=== PATIENT | female | born 1960 | race Caucasian/White ===

== ENCOUNTER → 2019-05-03 | Outpatient (CLI) | payer MEDICARE, OTHER ==
--- NOTE | 2019-05-03 14:10 | WOMENS IMAGING REPORT ---
EXAM DESCRIPTION: 3D SCREENING MAMMO BILAT COMPLETED DATE/TIME: 05/03/2019 11:01 am REASON FOR STUDY: Z12.31 ENCOUNTER FOR SCREENING MAMMOGRAM FOR MALIGNANT NEOPLASM OF BREAST Z12.31 ENCNTR SCREEN MAMMOGRAM FOR MALIGNANT NEOPLASM OF SUSAN COMPARISON: None. EXAM PARAMETERS: Views: Standard craniocaudal and mediolateral oblique views of each breast recorded using digital acquisition and breast tomosynthesis. Read with the assistance of CAD. .[facility] - [employer] Part Time Version 9.2 LIMITATIONS: None. FINDINGS: No suspicious masses, suspicious calcifications or architectural distortion. No areas of c oncern. IMPRESSION: NEGATIVE MAMMOGRAM. BIRADS 1. BREAST DENSITY: b. There are scattered areas of fibroglandular density. BIRAD: ASSESSMENT: 1 NEGATIVE RECOMMENDATION: ROUTINE SCREENING COMMENT: The patient has been notified of the results by letter per MQSA requirements. Additional no tification policies are in place for contacting patient with suspicious or incomplete findings. Quality ID #[id number]: The [employer] recommends an annual screening mammogram for women aged 40 years or over. This facility utilizes a reminder system to ensure that all patients receive reminder letters, and/or direct phone calls for appointments. This includes reminders for routine scr eening mammograms, diagnostic mammograms, or other Breast Imaging Interventions when appropriate. Th is patient will be placed in the appropriate reminder system. TECHNICAL DOCUMENTATION: FINDING NUMBER: (1) ASSESSMENT: (1) JOB ID: [id number] [employer] All Rights Reserved Reading location - IP/workstation name: [email or web address]
== END ==
LOC: WI 10:33
PROVIDERS: ATTEND Physician Assistant
DX: Z12.31 Encounter for screening mammogram for malignant neoplasm of breast (principal)
CPT/HCPCS: 77063; 77067

== ENCOUNTER → 2020-06-28 | Outpatient (CLI) | payer MEDICARE, OTHER ==
--- NOTE | 2020-06-28 13:36 | WOMENS IMAGING REPORT ---
EXAM DESCRIPTION: 3D SCREENING MAMMO BILAT IMAGES COMPLETED DATE/TIME: 06/28/2020 11:42 am REASON FOR STUDY: ROUTINE SCREENING MAMMOGRAM Z12.31 Z12.31 ENCNTR SCREEN MAMMOGRAM FOR MALIGNANT N EOPLASM OF SUSAN COMPARISON: 2019 EXAM PARAMETERS: Views: Standard craniocaudal and mediolateral oblique views of each breast recorded using digital acquisition and breast tomosynthesis. Read with the assistance of CAD. .[facility] - [employer] Version 9.2 LIMITATIONS: None. FINDINGS: No suspicious masses, suspicious calcifications or architectural distortion. No areas of c oncern. IMPRESSION: NEGATIVE MAMMOGRAM. BIRADS 1. BREAST DENSITY: b. There are scattered areas of fibroglandular density. BIRAD: ASSESSMENT: 1 NEGATIVE RECOMMENDATION: ROUTINE SCREENING COMMENT: The patient has been notified of the results by letter per MQSA requirements. Additional no tification policies are in place for contacting patient with suspicious or incomplete findings. Quality ID #[id number]: The [employer] recommends an annual screening mammogram for women aged 40 years or over. This facility utilizes a reminder system to ensure that all patients receive reminder letters, and/or direct phone calls for appointments. This includes reminders for routine scr eening mammograms, diagnostic mammograms, or other Breast Imaging Interventions when appropriate. Th is patient will be placed in the appropriate reminder system. TECHNICAL DOCUMENTATION: FINDING NUMBER: (1) ASSESSMENT: (1) JOB ID: [id number] 2010 [employer]- All Rights Reserved Reading location - IP/workstation name: [email or web address]
--- OUTSIDE RECORDS SUMMARY | 2020-06-29 15:38 | XMS REPORT ---
:1960 Author [facility] [place] [address] [place] [address] Care Team Providers Name Role Phone Unavailable Unavailable Unavailable Allergies, Adverse Reactions, Alerts This patient has no known allergies or adverse reactions. Medications Ordered Filled Start Stop Current Ordering Indication Dosage Frequency Signature Comments Components Medication Medication Date Date Medication? Clinician (SIG) Name Name levothyroxi No 1capsul Q1D levothyrox ne 75 mcg e(s) ine 75 mcg capsule capsule Take 1 Take 1 capsule capsule every day every day by oral by oral route. route. levothyroxi No 1capsul Q1D levothyrox ne 88 mcg e(s) ine 88 mcg capsule capsule Take 1 Take 1 capsule capsule every day every day by oral by oral route. route. Lunesta 3 No 1 Q1D Lunesta 3 mg tablet mg tablet Take 1 Take 1 tablet tablet every day every day by oral by oral route. route. Proventil No 2puff(s Q4H Proventil HFA 90 ) HFA 90 mcg/actuati mcg/actuat on aerosol ion inhaler aerosol Inhale 2 inhaler puffs every Inhale 2 4 hours by puffs inhalation every 4 route. hours by inhalation route. Singulair No 1 Q1D Singulair 10 mg 10 mg tablet Take tablet 1 tablet Take 1 every day tablet by oral every day route. by oral route. vitamin B12 No vitamin 1,000 B12 1,000 mcg-folic mcg-folic acid 400 acid 400 mcg mcg sublingual sublingual lozenge lozenge Place by Place by sublingual sublingual route. route. Advair No 1puff(s BID Advair Diskus 250 ) Diskus 250 mcg-50 mcg-50 mcg/dose mcg/dose powder for powder for inhalation inhalation Inhale 1 Inhale 1 puff twice puff twice a day by a day by inhalation inhalation route. route. albuterol No albuterol sulfate sulfate 0.63 mg/3 0.63 mg/3 mL solution mL for solution nebulizatio for n Inhale by nebulizati inhalation on Inhale route. by inhalation route. azathioprin No 2 Q1D azathiopri e 50 mg ne 50 mg tablet Take tablet 2 tablets Take 2 every day tablets by oral every day route. by oral route. Problems Condition Condition Condition Status Onset Resolution Last Treatin g Comments Name Details Category Date Date Treatment Clinician Date Hypothyroid Hypothyroid Problem Active ism ism 09-16 00:00: 00 Myasthenia Myasthenia Problem Active gravis Gravis 09-16 00:00: 00 Asthma Asthma Problem Active 09-16 00:00: 00 Osteoarthri Osteoarthri Problem Active tis tis 09-16 00:00: 00 Pain of Pain of Problem Active right wrist Right Wrist 09-16 00:00: 00 Tenosynovit Tenosynovit Problem Active is of right is of Right 09-16 radial Radial 00:00: styloid Styloid 00 Procedures Procedure Date / Time Performed Performing Clinician Mariangel farfan RADIOLOGIC EXAM WRIST 3 VIEWS 2019-09-16 00:00:00 Thymopexy Shoulder Surgery Arthroscopy Knee Replacement Results This patient has no known results. Assessments Condition Name Status Diagnosis Date Treating Clinici an Pain of right wrist Active 2019-09-16 08:47:52 Tenosynovitis of right radial styloid Active 2019-09-16 12:42:47 Encounters Start End Encounter Admission Attending Care Care Encounter Date/Time Date/Time Type Type Clinicians Facility Department ID 2019-09-16 2019-09-16 Miller Medley [id number] 00:00:00 00:00:00 [place], [facility] [id number] DO: [address] [facility], [address] [place] [id number] , Ph. Immunizations Ordered Immunization Filled Immunization Date Status Commen ts Refusal Reason Name Name influenza, 2019-05-06 Completed injectable, 00:00:00 quadrivalent Social History Smoking Status Start Date Stop Date Unknown If Ever Smoked Vital Signs Vital Name Observation Time Observation Value Comments BP Diastolic 2019-09-16 00:00:00 62 mm[Hg] Height 2019-09-16 00:00:00 64 [in_i] BMI (Body Mass Index) 2019-09-16 00:00:00 22 kg/m2 BP Systolic 2019-09-16 00:00:00 94 mm[Hg] Body Weight 2019-09-16 00:00:00 128 [lb_av] Hospital Discharge Instructions 1. Pain of right wrist XR, wrist 2. Tenosynovitis of right radial styloid Discussion Note: None recorded. Patient educational handouts: No information available.
== END ==
LOC: WI 13:49
PROVIDERS: ATTEND Physician Assistant
DX: Z12.31 Encounter for screening mammogram for malignant neoplasm of breast (principal)
CPT/HCPCS: 77063; 77067